=== PATIENT | male | born 1960 | race Caucasian/White ===

== ENCOUNTER 2016-05-11 11:34 | Observation (INO) | payer OTHER ==
[2016-05-11] MEDS ORDERED: OLANZapine 10 MG Vial ONE (11:42)
[2016-05-11 12:44] LABS: ACETAMINOPHEN < 10 ug/mL (10-30)
[2016-05-11] MEDS ORDERED: Sodium Chloride 0.9% 1,000 ML IV ONE (13:30)
[2016-05-11] MEDS ORDERED: OLANZapine 10 MG in Water For Injection, Sterile 2.1 ML IM PRN (13:50)
[2016-05-11] MEDS ORDERED: ATORVASTATIN 40 MG PO SCH (14:00)
[2016-05-11] MEDS ORDERED: CITALOPRAM 20 MG PO SCH (14:00)
[2016-05-11] MEDS ORDERED: Non-Formulary Medication 1 Each (Budesonide/Formoterol [Symbicort 160-4.5 Mcg] 2 PUFF) IH SCH (14:00)
[2016-05-11] MEDS ORDERED: ASPIRIN 81 MG PO SCH (14:00)
[2016-05-11] MEDS ORDERED: BUSPIRONE 5 MG PO SCH (14:00)
[2016-05-11] MEDS ORDERED: hydrOXYzine HCl 25 MG Tab PO PRN (14:27)
[2016-05-11] MEDS ORDERED: Sodium Chloride 0.9% 10 ML Syringe FLUSH PRN (14:33)
[2016-05-11] MEDS ORDERED: Albuterol 8 GM Inhaler INH PRN (15:30)
[2016-05-11] MEDS: Multivitamin Tab PO SCH ×2 (15:45→15:57)
[2016-05-11] MEDS ORDERED: Cyanocobalamin (Vitamin B12) 250 MCG Tab PO SCH (15:45)
[2016-05-11] MEDS ORDERED: Lisinopril 2.5 MG Tab PO SCH (15:45)
[2016-05-11] MEDS: Citalopram 20 MG Tab PO SCH ×2 (15:45→15:57)
[2016-05-11] MEDS: Folic Acid 1 MG Tab PO SCH ×2 (15:45→15:58)
[2016-05-11] MEDS: Aspirin 81 MG Tab.Chew PO SCH ×2 (15:45→15:57)
[2016-05-11] MEDS: busPIRone 5 MG Tab PO SCH ×3 (15:46→20:41)
[2016-05-11] MEDS: Thiamine 100 MG Tab PO SCH (15:57)
[2016-05-11] MEDS ORDERED: Albuterol 0.083% 2.5 MG/3 ML Neb Soln INH PRN (16:00)
[2016-05-11] MEDS: Formoterol/Mometasone 200-5 MCG 8.8 GM Inhaler IH SCH (16:01)
[2016-05-11] MEDS: Fenofibrate 160 MG Tab PO SCH ×2 (16:01→17:50)
[2016-05-11] MEDS: Tiotropium Inhaler 18 MCG Inhalation Powder Cap Kit of 5 INH SCH (16:02)
[2016-05-11] MEDS ORDERED: Cyanocobalamin (Vitamin B12) 100 MCG Tab PO SCH (17:15)
[2016-05-11] MEDS: Cyanocobalamin (Vitamin B12) 500 MCG Tab PO SCH (17:50)
[2016-05-11] MEDS: Lisinopril 5 MG Tab PO SCH (17:50)
--- NOTE | 2016-05-11 19:26 | PCM.HP ---
H&P History of Present Illness - General Date of Service: 05/11/16 Admit Problem/Dx: Admission Diagnosis/Problem Admission Diagnosis/Problem Alcohol intoxication Source of Information: Family, Old records, RN notes reviewed History Limitations: Reports: Altered mental status - History of Present Illness Initial Comments - Free Text/Narative: this is a 55-year-old male brought in to the ER, with alcohol intoxication .He states that he had been drinking and "got out of hand". He called law- enforcement on himself. He does have a history of depression but denies,and contradicts reports from the nursing staff that he tried to harm himself. He was he was also he's to CAD, COPD, and tobacco use that have been previously uncontrolled. Left Shoulder Pain Score (Numeric/FACES): 5 - Related Data Allergies/Adverse Reactions: Allergies Allergy/AdvReac Type Severity Reaction Status Date / Time codeine Allergy Nausea and Verified 05/11/16 13:50 Vomiting Home Medications: Home Meds Albuterol [IJD: Albuterol HFA] 1 puff IH Q4HR PRN 05/11/16 [History] Albuterol [Proventil] 1 unit IH QID PRN 05/11/16 [History] Aspirin 1 tab PO DAILY 05/11/16 [History] Budesonide/Formoterol [Symbicort 160-4.5 MCG] 2 puff IH DAILY 05/11/16 [History] Citalopram [Citalopram HBr] 1 tab PO DAILY 05/11/16 [History] Clobetasol [Clobetasol 0.05%] 1 applic TOP BID 05/11/16 [History] Cyanocobalamin (Vitamin B-12) [Vitamin B-12] 1 tab PO DAILY 05/11/16 [History] Fenofibrate 1 tab PO DAILY 05/11/16 [History] Fluticasone Propionate [Flovent] 1 spray IH BID 05/11/16 [History] Folic Acid 1 mg PO DAILY 05/11/16 [History] Lisinopril 1 tab PO DAILY 05/11/16 [History] Loratadine [Claritin] 1 cap PO DAILY PRN 05/11/16 [History] Metoprolol Succinate [Toprol XL] 25 mg PO DAILY 05/11/16 [History] Multivitamin [Multi-Vitamin Daily] 1 tab PO DAILY 05/11/16 [History] Thiamine [Vitamin B-1] 1 tab PO DAILY 05/11/16 [History] Tiotropium [Spiriva HandiHaler] 1 cap IH DAILY 05/11/16 [History] atorvaSTATin [Lipitor] 1 tab PO DAILY 05/11/16 [History] busPIRone [Buspar] 1.5 tab PO TID 05/11/16 [History] hydrOXYzine Pamoate [Hydroxyzine Pamoate] 1 cap PO TID PRN 05/11/16 [History] Past Medical History HEENT History: Reports: None Cardiovascular History: Reports: Bypass, High cholesterol, Hypertension, NH, PTCA, Stents Respiratory History: Reports: Asthma, COPD Psychiatric History: Reports: Anxiety, Depression, Panic attack, Suicide attempt , Suicidal ideation - Infectious Disease History Infectious Disease History: Reports: Chicken pox - Past Surgical History HEENT Surgical History: Reports: None Cardiovascular Surgical History: Reports: Coronary artery bypass, Coronary artery stent Social & Family History - Family History Family Medical History: Noncontributory Cardiac: Reports: Angina, Arrhythmia, High cholesterol, Hypertension, NH, SOB on exertion Respiratory: Reports: COPD, Other (see below) Other Respiratory Family Hisory: Emphysema, pleurisy GI: Reports: GERD Musculoskeletal: Reports: Osteoarthritis Psychiatric: Reports: Depression, Panic attack Endocrine/Metabolic: Reports: Diabetes, type II Dermatologic: Reports: Psoriasis - Tobacco Use Smoking Status *Q: Current Every Day Smoker Years of Tobacco use: 40 Packs/Tins Daily: 1 Used Tobacco, but Quit: No Month Tobacco Last Used: This month Second Hand Smoke Exposure: No - Caffeine Use Caffeine Use: Reports: Coffee, Soda - Alcohol Use Days Per Week of Alcohol Use: 4 Number of Drinks Per Day: 1 Total Drinks Per Week: 4 - Recreational Drug Use Recreational Drug Use: No H&P Review of Systems - Review of Systems: Review Of Systems: ROS reveals no pertinent complaints other than HPI. Exam - Exam Exam: See Below - Vital Signs Vital Signs: Last Vital Signs Temp 97.3 F 05/11/16 17:45 Pulse 63 05/11/16 17:45 Resp 18 05/11/16 17:45 BP 103/56 L 05/11/16 17:50 Pulse Ox 94 L 05/11/16 13:45 Weight: 75.75 kg - Exam General: alert, oriented, 4 HEENT: PERRLA, Hearing intact, Mucosa moist & pink, Nares patent, Normal nasal septum, Posterior pharynx clear, Conjunctiva clear, EOMI, EACs clear, TMs clear Neck: supple, trachea midline, 2 Lungs: Clear to auscultation, Normal respiratory effort Cardiovascular: regular rate, regular rhythm Abdomen: normal bowel sounds, soft (Male) Exam: No hernia, Normal inspection, Normal prostate, Circumcised Rectal (Males) Exam: Normal exam, Normal rectal tone, Prostate normal Back Exam: normal inspection, full range of motion, NT Extremities: 3, normal inspection, 10 Skin: warm, dry, intact Neurological: cranial nerves intact, reflexes equal bilateral Neuro Extensive - Mental Status: alert, oriented x3, normal mood/affect, normal cognition Neuro Extensive - Motor, Sensory, Reflexes: CN II-XII intact, normal gait, normal reflexes Psychiatric: alert, normal affect, normal mood - Patient Data Result Diagrams: 05/11/16 12:15 05/11/16 12:15 EKG INTERPRETATION Rhythm: NSR *Q Meaningful Use (ADM) - VTE *Q VTE Criteria *Q: - Stroke *Q Stroke Criteria *Q: - AMI *Q AMI Criteria *Q: - Problem List (1) Elevated ETOH level SNOMED Code(s): 015455788 ICD Code: R78.0 - FINDING OF ALCOHOL IN BLOOD Status: Acute Current Visit : Yes (2) Depression SNOMED Code(s): 68598193 ICD Code: F32.9 - MAJOR DEPRESSIVE DISORDER, SINGLE EPISODE, UNSPECIFIED Status: Acute Current Visit: Yes (3) Suicidal behavior with attempted self-injury SNOMED Code(s): 341252074, 957161391 ICD Code: T14.91 - SUICIDE ATTEMPT Status: Acute Current Visit: Yes (4) CAD (coronary artery disease) SNOMED Code(s): 71232028 ICD Code: I25.10 - ATHSCL HEART DISEASE OF [place] CORONARY ARTERY W/O ANG PCTRS Status: Chronic Current Visit: No (5) COPD (chronic obstructive pulmonary disease) SNOMED Code(s): 61709175 ICD Code: J44.9 - CHRONIC OBSTRUCTIVE PULMONARY DISEASE, UNSPECIFIED Status : Chronic Current Visit: No Problem List Initiated/Reviewed/Updated: Yes Orders Last 24hrs: Active Orders 24 hr Category Date Time Status Patient Status [ADT] Routine ADT 05/11/16 13:45 Active Oxygen Therapy [RC] PRN Care 05/11/16 13:45 Active Oxygen Therapy [RC] PRN Care 05/11/16 13:52 Active VTE/DVT Education [RC] Per Unit Routine Care 05/11/16 13:45 Active VTE/DVT Education [RC] Per Unit Routine Care 05/11/16 13:52 Active Vital Signs [RC] Q4H Care 05/11/16 13:45 Active Vital Signs [RC] Q4H Care 05/11/16 13:52 Active Regular Diet [DIET] Diet 05/11/16 Dinner Active ETOH [ETHANOL BLOOD MEDICAL] [CHEM] AM Lab 05/12/16 05:11 Ordered Albuterol [Proventil Neb Soln] Med 05/11/16 16:00 Active 2.5 mg INH QIDRT PRN Albuterol [Ventolin HFA] Med 05/11/16 15:30 Active 0 gm INH Q4H PRN Aspirin Med 05/11/16 15:30 Active 81 mg PO DAILY Citalopram [Celexa] Med 05/11/16 15:30 Active 20 mg PO DAILY Cyanocobalamin (Vitamin B12) [Vitamin B12] Med 05/11/16 17:45 Active 250 mcg PO DAILY Fenofibrate Med 05/11/16 15:45 Active 160 mg PO DAILY Folic Acid Med 05/11/16 15:45 Active 1 mg PO DAILY Lactated Ringers [Ringers, Lactated] 1,000 ml Med 05/11/16 13:45 Active IV ASDIRECTED Lisinopril [Prinivil] Med 05/11/16 17:15 Active 2.5 mg PO DAILY Metoprolol Succinate [Toprol XL] Med 05/12/16 09:00 Active 25 mg PO DAILY Mometasone/Formoterol [Dulera 200-5 MCG] Med 05/11/16 15:45 Active 2 puff IH DAILY Multivitamins [Tab-A-Shahid] Med 05/11/16 15:45 Active 1 tab PO DAILY OLANZapine [ZyPREXA] 10 mg Med 05/11/16 13:50 Active Water For Injection, Sterile [Sterile Water for Injection] 2.1 ml IM ONETIME Sodium Chloride 0.9% [Saline Flush] Med 05/11/16 14:33 Active 10 ml FLUSH ASDIRECTED PRN Thiamine [Vitamin B-1] Med 05/11/16 15:45 Active 100 mg PO DAILY Tiotropium [Spiriva HandiHaler] Med 05/11/16 15:45 Active 18 mcg INH DAILY atorvaSTATin [Lipitor] Med 05/11/16 21:00 Active 40 mg PO BEDTIME busPIRone [Buspar] Med 05/11/16 15:30 Active 7.5 mg PO TID hydrOXYzine HCl [Atarax] Med 05/11/16 14:27 Active 25 mg PO TID PRN Peripheral IV Insertion Adult [OM.PC] Routine Oth 05/11/16 13:40 Ordered Resuscitation Status Routine Resus Stat 05/11/16 13:45 Ordered Medication Orders Albuterol (Proventil Neb Soln) 2.5 mg INH QIDRT PRN PRN Reason: DYSPNEA Albuterol (Ventolin Hfa) 0 gm INH Q4H PRN PRN Reason: Dyspnea Aspirin (Aspirin) 81 mg PO DAILY [facility] Last Admin: 05/11/16 15:57 Dose: 81 mg Admin: 05/11/16 15:45 Dose: 81 mg Atorvastatin Calcium (Lipitor) 40 mg PO BEDTIME [facility] Buspirone HCl (Buspar) 7.5 mg PO TID [facility] Last Admin: 05/11/16 15:57 Dose: 7.5 mg Admin: 05/11/16 15:46 Dose: 7.5 mg Citalopram Hydrobromide (Celexa) 20 mg PO DAILY [facility] Last Admin: 05/11/16 15:57 Dose: 20 mg Admin: 05/11/16 15:45 Dose: 20 mg Cyanocobalamin (Vitamin B12) 250 mcg PO DAILY [facility] Last Admin: 05/11/16 17:50 Dose: 250 mcg Fenofibrate (Fenofibrate) 160 mg PO DAILY [facility] Last Admin: 05/11/16 17:50 Dose: 160 mg Folic Acid (Folic Acid) 1 mg PO DAILY [facility] Last Admin: 05/11/16 15:58 Dose: 1 mg Admin: 05/11/16 15:45 Dose: 1 mg Hydroxyzine HCl (Atarax) 25 mg PO TID PRN PRN Reason: Anxiety Lactated Ringer's (Ringers, Lactated) 1,000 mls @ 125 mls/hr IV ASDIRECTED [facility] Olanzapine 10 mg/ Sterile (Water) 2.1 mls @ 999 mls/hr IM ONETIME PRN PRN Reason: DIRECTED Lisinopril (Prinivil) 2.5 mg PO DAILY [facility] Last Admin: 05/11/16 17:50 Dose: 2.5 mg Metoprolol Succinate (Toprol Xl) 25 mg PO DAILY [facility] Mometasone Furoate/Formoterol Fumar (Dulera 200-5 Mcg) 2 puff IH DAILY [facility] Last Admin: 05/11/16 16:01 Dose: Not Given Multivitamins/Minerals/Vitamin C (Tab-A-Shahid) 1 tab PO DAILY [facility] Last Admin: 05/11/16 15:57 Dose: 1 tab Admin: 05/11/16 15:45 Dose: 1 tab Sodium Chloride (Saline Flush) 10 ml FLUSH ASDIRECTED PRN PRN Reason: Keep Vein Open Thiamine HCl (Vitamin B-1) 100 mg PO DAILY [facility] Last Admin: 05/11/16 15:57 Dose: 100 mg Tiotropium [place] (Spiriva Handihaler) 18 mcg INH DAILY [facility] Last Admin: 05/11/16 16:02 Dose: Not Given Assessment/Plan Comment:: Admit the patient, CIWA protocol initiated,along with IV fluids. Will probably discharge him in the morning unless he is interested in inpatient treatment for alcohol abuse.
[2016-05-11] MEDS: Lactated Ringers 1,000 ML IV SCH (20:44)
[2016-05-11] MEDS ORDERED: atorvaSTATin 40 MG Tab PO SCH (21:00)
[2016-05-11] MEDS ORDERED: traMADol 50 MG Tab PO PRN (21:44)
[2016-05-12] MEDS: Lactated Ringers 1,000 ML IV SCH (04:55)
[2016-05-12] MEDS ORDERED: LORazepam 0.5 MG Tab PO ONE (05:34)
--- NOTE | 2016-05-12 06:33 | PN ---
DATE SEEN: 05/12/2016 CHIEF COMPLAINT: Alcohol intoxication. HISTORY OF PRESENT ILLNESS: This is a 55-year-old male, who was admitted last night because of alcohol intoxication, he had a level of 0.34. He slept well overnight. He complains of trembling this morning, sweating, but denies any suicidal ideation or gesture. He does have a history of depression that is stable, alcohol abuse that has been uncontrolled, and CAD that is stable. REVIEW OF SYSTEMS: All other systems are negative. ALLERGIES: Codeine. SOCIAL HISTORY: He lives at home with his . PHYSICAL EXAMINATION: VITAL SIGNS: Temperature is normal. Blood pressure is 146/90. MENTAL STATUS: Alert, normal affect. Answer questions well. CHEST: Clear. CARDIOVASCULAR: Normal. EXTREMITIES: No edema. ABDOMEN: Soft. LABORATORY DATA: His alcohol level is pending this morning. Urine showed positive marijuana. FINAL IMPRESSION: 1. Alcohol intoxication and abuse. 2. Coronary artery disease. 3. Chronic obstructive pulmonary disease. 4. Marijuana use. 5. Tobacco use. PLAN: Discharge him home today. He declined referral to a Treatment Center. He currently says he goes through counseling and he is on rehab. He vehemently and convincingly denied any suicidal ideation or plan. Continue with his home medications I suggested and will prescribe Depakote to use 500 mg every day for withdrawal of alcohol and treatment thereof. /[id number] MELISSA/CHARLINE
[2016-05-12] MEDS: Tiotropium Inhaler 18 MCG Inhalation Powder Cap Kit of 5 INH SCH (08:09)
[2016-05-12] MEDS: Fenofibrate 160 MG Tab PO SCH (08:10)
[2016-05-12] MEDS: Citalopram 20 MG Tab PO SCH (08:10)
[2016-05-12] MEDS: Lisinopril 5 MG Tab PO SCH (08:11)
[2016-05-12] MEDS: Thiamine 100 MG Tab PO SCH (08:11)
[2016-05-12] MEDS: busPIRone 5 MG Tab PO SCH (08:11)
[2016-05-12] MEDS: Folic Acid 1 MG Tab PO SCH (08:14)
[2016-05-12] MEDS: Aspirin 81 MG Tab.Chew PO SCH (08:14)
[2016-05-12] MEDS: Formoterol/Mometasone 200-5 MCG 8.8 GM Inhaler IH SCH (08:14)
[2016-05-12] MEDS: Multivitamin Tab PO SCH (08:14)
[2016-05-12 08:15] VITALS: BP 152/97
[2016-05-12] MEDS: Cyanocobalamin (Vitamin B12) 500 MCG Tab PO SCH (08:15)
[2016-05-12] MEDS ORDERED: Metoprolol Succinate 25 MG Tab.ER PO SCH (09:00)
--- NOTE | 2016-05-15 08:44 | ER ---
DATE SEEN: 05/11/2016 TIME SEEN: The patient was seen on his arrival to the ED at 1134 hours. CHIEF COMPLAINT: Anger and intoxication. HISTORY OF PRESENT ILLNESS: This 55-year-old gentleman was recently hospitalized the through the for suicidal behavior, intoxication, anger, and was transferred to [place] with intubation at [place] because of his belligerent behavior. He has became more belligerent and drinking more, because his has asked for a divorce, and he is more or less sitting at home. He works at [employer] and has been extensively drinking over the years. He is attended by the son-in-law and daughter. Daughter knows most about his history. PAST SURGICAL HISTORY: Two-vessel CABG with harvest site in left forearm. The patient is not communicative, is angry, came in the room. He ran to the wall and banged his fist against the wall with his left hand. He has a history of increased belligerence, anger, and violence with his alcohol. He is not trying to hurt anybody. Intermittently, he has gestures where his fist comes up when he is stimulated. He does not strike out at anyone. He is noted to drink at least 1.7 L of alcohol per day. More recently, alcohol has increased. MEDICATIONS: 1. Alprazolam 0.25 mg. 2. Indomethacin 50 mg. 3. Citalopram 40 mg. 4. Nitrostat. 5. Famotidine 20 mg. 6. Lisinopril 2.5 mg. 7. Diclofenac 75 mg. 8. Metoprolol XL 25 mg. 9. Loratadine. 10.Brilinta 90 mg. 11.Buspirone 15 mg. 12.Hydroxyzine 25 mg. PAST MEDICAL HISTORY: Alcohol excess, overdose, abuse, intubation 04/09/2016 because of his aggressive behavior and confusion, agitation, depression, suicidal ideation. At that time, he says, "I am done with my life" and that the suicidal been suicidal lately, mostly depressed. ALLERGIES: Codeine. OTHER PAST MEDICAL HISTORY: COPD, asthma, gastritis, anxiety. REVIEW OF SYSTEMS: Not performed because of his ethanol intoxication. PHYSICAL EXAMINATION: HEENT: Pupils do react to light. Moderate scleral injection. Hair is a mess. Multiple teeth missing. Pharynx without erythema. NECK: No bruits in neck. No cervical adenopathy. LUNGS: Clear to auscultation without rales or rhonchi. HEART: S1, S2. No murmur. Sinus rhythm. Sinus bradycardia. ABDOMEN: Soft. No guarding. No abdominal discomfort. Sternal incision that extends to the upper midepigastrium for CABG surgery. Left forearm incision healed, previous autogenous vein graft harvest donor site for his CABG. EXTREMITIES: Lower extremities without abnormality or pedal edema. No evidence for trauma. NEUROLOGIC: Hypoactive deep tendon reflexes. Cranial nerves, decreased hearing, sluggish pupil response, otherwise negative. Hearing is decreased. Motor strength is good. DIAGNOSIS: Agitation secondary to ethanol. DIAGNOSTIC DATA: Blood alcohol is 0.34. Hypokalemia at 3.0, AST 30, ALT 20, troponin 0.01. Drug screen is negative. Aspirin level is less than 4. APAP is less than 10. EKG: Left sinus bradycardia with left ventricular hypertrophy. Chest x-ray, negative. ASSESSMENT: 1. Alcohol intoxication. 2. Anger response to alcohol intoxication. 3. Good response to Zyprexa 10 mg IM. He is resting. 4. Dehydration. 5. Hypokalemia. 6. No evidence for myocardial infarction. 7. Otherwise, diagnoses of chronic obstructive pulmonary disease and coronary artery disease. PLAN: Patient admitted to inpatient observation in ICU for monitoring and p.r.n. Zyprexa, should he become violent or agitated. The patient is stabilized on Zyprexa. /[id number] TANIA/KAYLAL
== END 2016-05-12 10:03 | disposition home or self-care (01) ==
LOC: FB.ED 11:34 → FB.ICU 13:17 → FB.MS 13:17
PROVIDERS: ADMIT Family Medicine; ATTEND Family Medicine
DX: F10.129 Alcohol abuse with intoxication, unspecified (principal); F12.90 Cannabis use, unspecified, uncomplicated; R45.4 Irritability and anger; Y90.1 Blood alcohol level of 20-39 mg/100 ml; I25.810 Atherosclerosis of coronary artery bypass graft(s) without angina pectoris; I10 Essential (primary) hypertension; F17.200 Nicotine dependence, unspecified, uncomplicated; Z95.5 Presence of coronary angioplasty implant and graft; E78.00 Pure hypercholesterolemia, unspecified; J44.9 Chronic obstructive pulmonary disease, unspecified; J45.909 Unspecified asthma, uncomplicated; F32.9 Major depressive disorder, single episode, unspecified; F41.9 Anxiety disorder, unspecified; Z79.82 Long term (current) use of aspirin; Z79.899 Other long term (current) drug therapy; Z88.6 Allergy status to analgesic agent
CPT/HCPCS: 36415; 80053; 80305; 81001; 83735; 84484; 85025; 93005; 96360; 96361; 96372; 99285; A9270; G0378; G0480; J7040; J7120; S0166

== ENCOUNTER 2020-03-18 12:09 | Emergency (ER) | payer MEDICARE, MEDICAID ==
[2020-03-18 12:45] VITALS: BP 139/90; PULSE 83
--- NOTE | 2020-03-18 12:47 | EDM.PDOC ---
ED HPI GENERAL MEDICAL PROBLEM - General Chief Complaint: Chest Pain Stated Complaint: CHEST PAIN Time Seen by Provider: 03/18/20 12:40 Source of Information: Reports: Patient History Limitations: Reports: No Limitations - History of Present Illness INITIAL COMMENTS - FREE TEXT/NARRATIVE: 59-year-old male who reports sudden of a sharp pain that shot across his entire chest at about 11:15 AM today while he was at home and at rest. It did not seem to have any chest or bating or alleviating factors other than he did take a nitroglycerin 5 minutes after it began and by 11:30 AM the pain was gone. He reports that he had several episodes of pain recurring since then that lasted for shorter periods of time and were less severe and he is completely pain-free. He also reported some mild right posterior neck stiffness associated with this but all of the pain is gone now. He would rates pain as a 0/10 at present. The pain was a 6/10 at its worst. There was no nausea or vomiting. He had no difficulty breathing. There were no antecedent problems. There are no other associated signs or symptoms. There are no other modifying factors. Onset: Today (11:15 AM) Duration: Waxing/Waning Location: Reports: Chest Quality: Reports: Pressure, Sharp Severity: Moderate Improves with: Reports: Other (Initially the pain seemed to go away with nitroglycerin but he only took one tablet and did not repeat with the other episodes of chest pain. 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 - Related Data Allergies Allergy/AdvReac Type Severity Reaction Status Date / Time codeine Allergy Nausea and Verified 03/18/20 12:48 Vomiting house dust Allergy Shortness Verified 03/18/20 12:48 of Breath Home Meds: Home Meds Albuterol [IJD: Albuterol HFA] 1 puff IH Q4HR PRN 05/11/16 [History] Albuterol [Proventil] 1 unit IH QID PRN 05/11/16 [History] Aspirin 1 tab PO DAILY 05/11/16 [History] Budesonide/Formoterol [Symbicort 160-4.5 MCG] 2 puff IH DAILY 05/11/16 [History] Citalopram [Citalopram HBr] 1 tab PO DAILY 05/11/16 [History] Clobetasol [Clobetasol 0.05%] 1 applic TOP BID 05/11/16 [History] Cyanocobalamin (Vitamin B-12) [Vitamin B-12] 1 tab PO DAILY 05/11/16 [History] Fenofibrate 1 tab PO DAILY 05/11/16 [History] Fluticasone Propionate [Flovent] 1 spray IH BID 05/11/16 [History] Folic Acid 1 mg PO DAILY 05/11/16 [History] Lisinopril 1 tab PO DAILY 05/11/16 [History] Loratadine [Claritin] 1 cap PO DAILY PRN 05/11/16 [History] Metoprolol Succinate [Toprol XL] 25 mg PO DAILY 05/11/16 [History] Multivitamin [Multi-Vitamin Daily] 1 tab PO DAILY 05/11/16 [History] Thiamine [Vitamin B-1] 1 tab PO DAILY 05/11/16 [History] Tiotropium [Spiriva HandiHaler] 1 cap IH DAILY 05/11/16 [History] atorvaSTATin [Lipitor] 1 tab PO DAILY 05/11/16 [History] busPIRone [Buspar] 1.5 tab PO TID 05/11/16 [History] hydrOXYzine pamoate [Hydroxyzine Pamoate] 1 cap PO TID PRN 05/11/16 [History] Divalproex Sodium [Depakote ER] 500 mg PO DAILY #30 tab.sr.24h 05/12/16 [Rx] Past Medical History HEENT History: Reports: Impaired Vision Cardiovascular History: Reports: Bypass, CAD, High Cholesterol, Hypertension, VT, PTCA, Stents Respiratory History: Reports: Asthma, COPD Psychiatric History: Reports: Anxiety, Depression, Panic Attack, Suicide Attempt, Suicidal Ideation Endocrine/Metabolic History: Reports: Diabetes, Type II - Infectious Disease History Infectious Disease History: Reports: Chicken Pox - Past Surgical History Cardiovascular Surgical History: Reports: Coronary Artery Bypass, Coronary Artery Stent GI Surgical History: Reports: Colonoscopy Social & Family History - Family History Cardiac: Reports: Angina, Arrhythmia, High Cholesterol, Hypertension, VT, SOB on Exertion Respiratory: Reports: COPD, Other (See Below) Other Respiratory Family Hisory: Emphysema, pleurisy GI: Reports: GERD Musculoskeletal: Reports: Osteoarthritis Psychiatric: Reports: Depression, Panic Attack Endocrine/Metabolic: Reports: Diabetes, type II Dermatologic: Reports: Psoriasis - Tobacco Use Tobacco Use Status *Q: Current Every Day Tobacco User - Caffeine Use Caffeine Use: Reports: Coffee, Soda - Alcohol Use Alcohol Use History: No - Living Situation & Occupation Living situation: Reports: , with Spouse ED ROS GENERAL - Review of Systems Review Of Systems: See Below Constitutional: Reports: No Symptoms HEENT: Reports: No Symptoms Respiratory: Reports: No Symptoms Cardiovascular: Reports: Chest Pain Endocrine: Reports: No Symptoms GI/Abdominal: Reports: No Symptoms : Reports: No Symptoms Musculoskeletal: Reports: Neck Pain (Right posterior neck stiffness.) Skin: Reports: No Symptoms. Denies: Diaphoresis Neurological: Reports: No Symptoms Hematologic/Lymphatic: Reports: No Symptoms Immunologic: Reports: No Symptoms ED EXAM, GENERAL - Physical Exam Exam: See Below Exam Limited By: No Limitations General Appearance: Alert, WD/WN, No Apparent Distress Eye Exam: Bilateral Eye: EOMI, Normal Inspection Ears: Normal External Exam, Hearing Grossly Normal Ear Exam: Bilateral Ear: Auricle Normal Nose: Normal Inspection, Normal Mucosa, No Blood Throat/Mouth: Normal Inspection, Normal Oropharynx, Normal Voice, No Airway Compromise Head: Atraumatic, Normocephalic Neck: Normal Inspection, Supple, Non-Tender, Full Range of Motion Respiratory/Chest: No Respiratory Distress, Lungs Clear, Normal Breath Sounds, No Accessory Muscle Use, Chest Non-Tender Cardiovascular: Normal Peripheral Pulses, Regular Rate, Rhythm, No Murmur Peripheral Pulses: 2+: Radial (L), Radial (R) GI/Abdominal: Normal Bowel Sounds, Soft, Non-Tender, No Mass Back Exam: Normal Inspection, Full Range of Motion Extremities: Normal Inspection, Normal Range of Motion, Non-Tender, No Pedal Edema, Normal Capillary Refill Neurological: Alert, Oriented, CN II-XII Intact, Normal Cognition, No Motor/Sensory Deficits Psychiatric: Normal Affect Skin Exam: Warm, Dry, Intact, Normal Color, No Rash #1 Interpretation EKG Date: 03/18/20 Time: 12:27 Rhythm: NSR Rate (Beats/Min): 78 [place]: Normal P-Wave: Enlarged (Left atrial enlargement) QRS: Normal ST-T: Depressed (In inferior leads. There is also LVH.) Comparison: Change From Previous EKG (Inferior ST depression is new from EKG performed on 05/11/2016.) Course - Vital Signs Last Recorded V/S: Last Vital Signs Temp 36.6 C 03/18/20 12:09 Pulse 83 03/18/20 12:09 Resp 19 03/18/20 12:09 BP 139/90 03/18/20 12:09 Pulse Ox 98 03/18/20 12:09 - Orders/Labs/Meds Orders: Active Orders 24 hr Category Date Time Status EKG Documentation Completion [RC] ASDIRECTED Care 03/18/20 13:05 Active Chest 1V Frontal [CR] Stat Exams 03/18/20 13:05 Taken Sodium Chloride 0.9% [Saline Flush] Med 03/18/20 13:05 Active 10 ml FLUSH ASDIRECTED PRN Peripheral IV Insertion Adult [OM.PC] Routine Oth 03/18/20 13:05 Ordered EKG 12 Lead [EK] Routine Ther 03/18/20 13:05 Ordered Medication Orders Sodium Chloride (Saline Flush) 10 ml FLUSH ASDIRECTED PRN PRN Reason: Keep Vein Open Labs: Laboratory Tests 03/18/20 03/18/20 03/18/20 Range/Units 12:50 12:50 12:50 WBC 8.0 (3.2-10.1) x10-3/uL RBC 5.29 (3.90-5.90) x10(6)uL Hgb 15.4 (12.9-17.7) g/dL Hct 46.1 (38.3-50.1) % MCV 87.0 (80.8-98.7) fL MCH 29.1 (27.0-33.3) pg MCHC 33.5 (28.7-35.3) g/dL RDW 14.4 (12.4-15.0) % Plt Count 245 (117-477) x10(3)uL MPV 8.8 (6.7-11.0) fL Neut % (Auto) 60.3 (40.3-71.8) % Lymph % (Auto) 23.6 (15.8-45.3) % Antelope % (Auto) 10.6 (5.5-15.2) % Eos % (Auto) 4.4 (0.1-6.8) % Baso % (Auto) 1.1 (0.3-3.8) % Neut # (Auto) 4.8 (1.7-6.9) x10-3/uL Lymph # (Auto) 1.9 (0.5-4.5) x10-3/uL Antelope # (Auto) 0.8 (0.0-1.2) x10-3/uL Eos # (Auto) 0.3 (0.0-0.6) x10-3/uL Baso # (Auto) 0.1 (0.0-0.3) x10-3/uL PT (9.0-11.1) sec INR (1.00-1.24) APTT (24.4-33.2) SECONDS D-Dimer, Quantitative 0.39 (0.0-0.59) mg/LFEU Sodium 138 (135-145) mmol/L Potassium 3.9 (3.5-5.3) mmol/L Chloride 99 L (100-110) mmol/L Carbon Dioxide 27 (21-32) mmol/L BUN 12 (7-18) mg/dL Creatinine 1.0 (0.70-1.30) mg/dL Est Cr Clr Drug Dosing 76.95 mL/min Estimated GFR (MDRD) > 60 (>60) BUN/Creatinine Ratio 12.0 (9-20) Glucose 123 H (80-116) mg/dL Calcium 8.9 (8.6-10.2) mg/dL Magnesium 1.9 (1.8-2.5) mg/dL Total Bilirubin 0.6 (0.1-1.3) mg/dL AST 21 (5-25) IU/L ALT 51 H (12-36) U/L Alkaline Phosphatase 93 (56-112) IU/L Troponin I (4.0-60.3) pg/mL Total Protein 7.6 (6.0-8.0) g/dL Albumin 4.0 (3.5-5.2) g/dL Globulin 3.6 g/dL Albumin/Globulin Ratio 1.1 03/18/20 03/18/20 Range/Units 12:50 12:50 WBC (3.2-10.1) x10-3/uL RBC (3.90-5.90) x10(6)uL Hgb (12.9-17.7) g/dL Hct (38.3-50.1) % MCV (80.8-98.7) fL MCH (27.0-33.3) pg MCHC (28.7-35.3) g/dL RDW (12.4-15.0) % Plt Count (117-477) x10(3)uL MPV (6.7-11.0) fL Neut % (Auto) (40.3-71.8) % Lymph % (Auto) (15.8-45.3) % Antelope % (Auto) (5.5-15.2) % Eos % (Auto) (0.1-6.8) % Baso % (Auto) (0.3-3.8) % Neut # (Auto) (1.7-6.9) x10-3/uL Lymph # (Auto) (0.5-4.5) x10-3/uL [place]elope # (Auto) (0.0-1.2) x10-3/uL Eos # (Auto) (0.0-0.6) x10-3/uL Baso # (Auto) (0.0-0.3) x10-3/uL PT 9.9 (9.0-11.1) sec INR 0.91 L (1.00-1.24) APTT 24.8 (24.4-33.2) SECONDS D-Dimer, Quantitative (0.0-0.59) mg/LFEU Sodium (135-145) mmol/L Potassium (3.5-5.3) mmol/L Chloride (100-110) mmol/L Carbon Dioxide (21-32) mmol/L BUN (7-18) mg/dL Creatinine (0.70-1.30) mg/dL Est Cr Clr Drug Dosing mL/min Estimated GFR (MDRD) (>60) BUN/Creatinine Ratio (9-20) Glucose (80-116) mg/dL Calcium (8.6-10.2) mg/dL Magnesium (1.8-2.5) mg/dL Total Bilirubin (0.1-1.3) mg/dL AST (5-25) IU/L ALT (12-36) U/L Alkaline Phosphatase (56-112) IU/L Troponin I 8.6 (4.0-60.3) pg/mL Total Protein (6.0-8.0) g/dL Albumin (3.5-5.2) g/dL Globulin g/dL Albumin/Globulin Ratio Meds: Medications Generic Name Dose Route Start Last Admin Trade Name Be PRN Reason Stop Dose Admin Sodium Chloride 10 ml 03/18/20 13:05 Saline Flush FLUSH ASDIRECTED PRN Keep Vein Open Discontinued Medications Generic Name Dose Route Start Last Admin Trade Name Freq PRN Reason Stop Dose Admin Aspirin 324 mg 03/18/20 13:05 03/18/20 13:10 Aspirin PO 03/18/20 13:06 324 mg ONETIME ONE Administration - Radiology Interpretation Free Text/Narrative:: Portable chest x-ray showed no acute disease. - Re-Assessments/Exams Free Text/Narrative Re-Assessment/Exam: 03/18/20 13:00: Patient's EKG was done initially and does show some increased T- wave depression/inversion in his inferior leads compared to 2017. He is chest pain-free now. He does have a very extensive history of coronary artery disease and with the chest pain that he had today however atypical it sounds EKG changes, I recommended to him that he would need admission with serial cardiac enzymes and would also most probably need transfer to another facility (as I have been told we do not have staff for admission at this facility) no matter what his blood tests and chest x-ray showed. He has told me that he would not want to be admitted to the hospital and that he would wait to hear what the results of his blood tests are but he would not even want to wait an additional 3 hours to have his troponin repeated if it were negative initially. I have scuffs with him at length that not accurately determine whether he had a problem with his heart or not and I have explained the rationale area he seems to understand and tells me that he would still not want to stay in the hospital and would want to leave if his tests are normal. We will continue close monitoring for now. I will give the patient aspirin 324 mg orally as he has not taken his aspirin today 03/18/20 14:15: The patient's initial troponin was normal. The d-dimer was normal. He has remained chest pain-free. His chest x-ray shows no acute disease. His other blood tests are reassuring. I discussed all this with the patient and he tells me that he would want to be discharged home. I again reiterated of with the patient and explained now again and again recommended that he be transferred to admission at [place]. However, he refuses this and wishes to be discharged home. He understands that he is doing this against my recommendation. I have strongly urged that the patient follow-up with his primary doctor this week and told him that he come back to an emergency department for recurring chest pain or any other concerning sign or symptom. Departure - Departure Time of Disposition: 14:23 Disposition: Home, Self-Care 01 Condition: Undetermined (Stable) Clinical Impression: Acute electrocardiogram changes Chest pain Qualifiers: Chest pain type: unspecified Qualified Code(s): R07.9 - Chest pain, unspecified Instructions: Nonspecific Chest Pain, Adult, [id number] Referrals: Owen Ohara MD [Primary Care Provider] - Forms: ED Department Discharge Additional Instructions: Your EKG was different from an EKG performed on 2016. As we discussed, it did not show a definite heart attack pattern but this change would be concerning for possible ischemia or decreased blood flow to your heart given that you aren't having chest pain. Your blood tests were all and you had a normal troponin and a normal blood clot screening test. As we also discussed, because of the short period of time between when your pain began and when we checked the heart tests, you could still have something going on with her heart that we are not able to determine at this point. Your chest x-ray was normal. I am unsure what is causing your chest pain but given your strong history of heart disease and with the EKG changes, I had recommended to you that you be admitted to the hospital and actually that you should be transferred to [place]. You did not want admission or transfer and wanted to go home. You are understanding that this is a recommendations. I certainly recommend that he follow-up with your doctor this coming week and you should come back to the emergency department for recurrent pain, trouble breathing, back pain, neck or arm pain or any other concerning sign or symptom. Sepsis Event Note (ED) - Focused Exam Vital Signs: Vital Signs Temp Pulse Resp BP Pulse Ox 03/18/20 12:09 36.6 C 83 19 139/90 98 - My Orders Last 24 Hours: My Active Orders 03/18/20 13:05 EKG Documentation Completion [RC] ASDIRECTED Chest 1V Frontal [CR] Stat Sodium Chloride 0.9% [Saline Flush] 10 ml FLUSH ASDIRECTED PRN Peripheral IV Insertion Adult [OM.PC] Routine EKG 12 Lead [EK] Routine - Assessment/Plan Last 24 Hours: My Active Orders 03/18/20 13:05 EKG Documentation Completion [RC] ASDIRECTED Chest 1V Frontal [CR] Stat Sodium Chloride 0.9% [Saline Flush] 10 ml FLUSH ASDIRECTED PRN Peripheral IV Insertion Adult [OM.PC] Routine EKG 12 Lead [EK] Routine
[2020-03-18] MEDS ORDERED: Sodium Chloride 0.9% 10 ML Syringe FLUSH PRN (13:05)
[2020-03-18] MEDS ORDERED: Aspirin 81 MG Tab.Chew PO ONE (13:05)
--- NOTE | 2020-03-20 11:28 | CR ---
INDICATION: Chest pain. CHEST ONE VIEW: Portable AP upright view of the chest 03/16/20 was compared with 04/09/16 and an additional view from 04/09/16. Post median sternotomy changes again noted with the heart appearing to be relatively prominent in size compared with the previous examinations which were also apparently portable studies. The heart was not grossly enlarged, however. Overlying EKG leads are noted. A definite active infiltrate or effusion was not identified, with pulmonary markings similar to the previous examination. Minimal calcification is noted in the arch of the aorta. IMPRESSION: Post median sternotomy heart may be slightly enlarged compared with previous examinations, no other change or definite acute process was identified. There is a linear density at the left costophrenic angle which may be in part present previously and may represent fibrosis or minimal linear atelectasis. MTDD
== END 2020-03-18 14:15 | disposition home or self-care (01) ==
LOC: FB.ED 12:09
DX: R07.9 Chest pain, unspecified (principal); R94.31 Abnormal electrocardiogram [ECG] [EKG]; I25.10 Atherosclerotic heart disease of native coronary artery without angina pectoris; E78.00 Pure hypercholesterolemia, unspecified; I10 Essential (primary) hypertension; I25.2 Old myocardial infarction; J44.9 Chronic obstructive pulmonary disease, unspecified; E11.9 Type 2 diabetes mellitus without complications; Z79.82 Long term (current) use of aspirin; Z79.899 Other long term (current) drug therapy; Z88.5 Allergy status to narcotic agent; Z91.048 Other nonmedicinal substance allergy status; Z95.5 Presence of coronary angioplasty implant and graft; Z95.1 Presence of aortocoronary bypass graft
CPT/HCPCS: 36415; 71045; 80053; 83735; 84484; 85025; 85379; 85610; 85730; 93005; 99285; A9270; 93010; 99284

== ENCOUNTER 2022-03-25 17:42 | Emergency (ER) | payer MEDICARE, MEDICAID, OTHER ==
[2022-03-25] MEDS ORDERED: Gabapentin 300 MG Cap PO ONE (19:39)
[2022-03-25 20:45] VITALS: BP 120/85; PULSE 76
== END 2022-03-25 18:36 ==
LOC: FB.ED 17:42
DX: F41.9 Anxiety disorder, unspecified (principal); F10.930 Alcohol use, unspecified with withdrawal, uncomplicated; Z72.0 Tobacco use; Z79.82 Long term (current) use of aspirin; Z79.899 Other long term (current) drug therapy; Z95.1 Presence of aortocoronary bypass graft; Y90.6 Blood alcohol level of 120-199 mg/100 ml
CPT/HCPCS: 82947; 99283; 99285; A9270-GY